=== PATIENT | female | born 1935 | race Asian ===

== ENCOUNTER 2018-08-19 08:31 | Emergency (ER) | payer BC, MEDICARE, OTHER ==
[~2018-08-19] VITALS: Ht 157.5 cm; Wt 48.5 kg
[~2018-08-19 08:31] MED LIST: CALC300T34 PO; CYAN100018 PO; FOLI0.4T2 PO; ZOC10 PO
[2018-08-19 08:39] VITALS: Ht 157.5 cm; Wt 48.5 kg
[2018-08-19] MEDS ORDERED: SOD CHLORIDE 0.9% 1,000 ML IV STA (08:51)
--- NOTE | 2018-08-19 09:10 | ERD ---
ER Documentation Chief Complaint Chief Complaint ringing on the right ear HPI 83-year-old female who states that she has had 1 month of a whooshing sound in her right ear that is consistent with the rate of her pulse. Patient denies any headache or vision changes, no weight loss. She denies any dizziness, room spinning sensation or syncope. No severe sudden onset of symptoms. She has not followed up with her nares and throat specialist for this timeframe. No recent fall or trauma. ROS All systems reviewed and are negative except as per history of present illness. Medications Home Meds Reported Medications Simvastatin* (Zocor*) 40 Mg Tablet, 40 MG PO QHS, #30 TAB 08/19/18 Discontinued Reported Medications Cyanocobalamin (B12 Health Booster) 1,000 Mcg/15 Ml Oral.susp, 1000 MCG PO DAILY 02/10/12 Folic Acid* (Folic Acid*) 0.4 Mg Tablet, 0.4 MG PO DAILY 02/10/12 Calcium Carbonate (Tums EX) 1 Tab.chew Tab.chew, 1.5 TAB.CHEW PO DAILY 02/10/12 Simvastatin (Simvastatin) 10 Mg Tablet, 10 MG PO DAILY 02/10/12 Allergies Allergies: Coded Allergies: iodine (Verified Allergy, Mild, 08/19/18) Uncoded Allergies: dye (Allergy, Mild, rash, 09/27/09) PMhx/Soc History of Surgery: Yes (hysterectomy, colon resection for CA , AORTIC VALVE REPLACEMENT ) Anesthesia Reaction: No Hx Neurological Disorder: No Hx Respiratory Disorders: No Hx Cardiac Disorders: Yes (HYPERLILIDEMIA ) Hx Psychiatric Problems: No Hx Miscellaneous Medical Probl: Yes ( colon CA) Hx Alcohol Use: No Hx Substance Use: No Hx Tobacco Use: No Smoking Status: Never smoker FmHx Family History: No diabetes Physical Exam Vitals Vital Signs Date Temp Pulse Resp B/P (MAP) Pulse Ox O2 O2 Flow FiO2 Time Delivery Rate 08/19/18 98.3 58 18 129/71 100 Room Air 11:35 (90) 08/19/18 61 18 148/81 99 Room Air 10:05 (103) 08/19/18 98.3 69 24 180/85 99 08:39 (116) Physical Exam General: Well developed, well nourished, no acute distress Head: Normocephalic, atraumatic. Eyes: Pupils equally reactive, EOM intact ENT: Moist mucous membranes, right ear canal is clear, tympanic membrane has old scarring but no erythema or bulging. Left TM is normal. Neck: Supple, no lymphadenopathy Respiratory: Lungs clear bilaterally, no distress Cardiovascular: RRR, no murmurs, rubs, or gallops Abdominal: Soft, non-tender, non-distended, no peritoneal signs : Deferred MSK: No edema, no unilateral swelling, 5/5 strength Neurologic: Alert and oriented, moving all extremities, normal speech, no focal weakness, no cerebellar signs, no ataxia Skin: No rash Psych: Normal mood Result Diagram: 08/19/1890108/19/18901 Results 24 hrs Laboratory Tests Test 08/19/18 09:02 White Blood Count 5.6 10^3/ul Red Blood Count 4.01 10^6/ul Hemoglobin 11.7 g/dl Hematocrit 37.5 % Mean Corpuscular Volume 93.5 fl Mean Corpuscular Hemoglobin 29.2 pg Mean Corpuscular Hemoglobin Concent 31.2 g/dl Red Cell Distribution Width 14.5 % Platelet Count 167 10^3/UL Mean Platelet Volume 9.6 fl Immature Granulocytes % 0.500 % Neutrophils % 62.0 % Lymphocytes % 27.3 % Monocytes % 7.7 % Eosinophils % 1.8 % Basophils % 0.7 % Nucleated Red Blood Cells % 0.0 /100WBC Immature Granulocytes # 0.030 10^3/ul Neutrophils # 3.5 10^3/ul Lymphocytes # 1.5 10^3/ul Monocytes # 0.4 10^3/ul Eosinophils # 0.1 10^3/ul Basophils # 0.0 10^3/ul Nucleated Red Blood Cells # 0.0 10^3/ul Sodium Level 147 mmol/L Potassium Level 4.6 mmol/L Chloride Level 108 mmol/L Carbon Dioxide Level 33 mmol/L Anion Gap 6 Blood Urea Nitrogen 15 mg/dl Creatinine 0.63 mg/dl Est Glomerular Filtrat Rate mL/min mL/min Glucose Level 104 mg/dl Calcium Level 9.3 mg/dl Current Medications Medications Dose Sig/Rosita Start Time Status Last (Trade) Ordered Route PRN Stop Time Admin Dose Reason Admin Sodium 1,000 ml @ Q1H STAT 08/19/18 DC 08/19/18 Chloride 1,000 mls/hr IV 08:51 09:06 08/19/18 09:50 Procedures/MDM EKG, MONITORS, & DIAGNOSTIC IMAGING: MRI/MRA PENDING LAB INTERPRETATION: I reviewed the laboratory testing and it shows no evidence of acute process MEDICAL DECISION MAKING: The patient describes a 1 month of a whooshing sound in her right ear. The patient is otherwise well-appearing without vertigo signs or symptoms despite what was noted in triage. The patient has a nonfocal neurologic exam. Unclear etiology, most likely consistent with ENT process rather than central nervous system process or vascular process. However more serious causes could include intracranial mass or aneurysm versus dissection. This seems less likely given the duration of symptoms however the patient has not had a work-up. Given her age and increased risk profile I believe CT and CTA of the head and neck would be appropriate. If negative outpatient ENT follow-up would be reasonable. ER COURSE: * The patient continues to be well-appearing and asymptomatic in the emergency room setting. The patient has an iodine contrast of CT. * We are attempting to get an MRI, MRA of the patient's head and neck. However, the patient has a valve. Based on documentation it appears this valve is appropriate for MRI however we need confirmation. * The nurse caring for the patient was able to reach out to the primary cardiothoracic surgeon's office. They have given verbal report that this valve is appropriate for MRI. windows migration technician needs further confirmation and are speaking with the office to confirm. If we are able to confirm patient is appropriate for MRI then MRI will continue. However I did have an in-depth conversation with the patient discussing the significantly low risk for aneurysmal process. We discussed potential outpatient follow-up given very low pretest probability. If we are unable to obtain MRI imaging and a timely fashion in the emergency room setting they feel very comfortable following up with primary care physician. Given 1 month of symptoms this seems like an appropriate alternative. CONSULTATION: None DISPOSITION PLAN: Pending MRI imaging, patient endorsed oncoming provider but anticipate discharge, see below The patient does not have an identifiable emergent medical condition that warrants inpatient hospitalization at this time. The patient is deemed safe for discharge with outpatient follow-up. We discussed follow up with the patient's primary care doctor within 24 to 48 hours as needed. We also discussed return to the emergency room for worsening symptoms or worsening condition. Outpatient referral: None required Discharge Medications: None required Departure Diagnosis: Primary Impression: Congestion of right ear Condition: Stable FARRAH MOLINA A., MD Aug 19, 2018 09:10
[2018-08-19] MEDS ORDERED: SIMV40TA2 PO (10:07)
--- NOTE | 2018-08-19 19:36 | QN ---
Documentation Comment Observation Note: Time: 4 hours Family Hx: Negative for diabetes Evaluation: Multiple exams showed improving symptoms and no evidence of clinical decompensation. MRI/MRA of the brain and neck showed no obvious signs of aneurysm formation to the explain the whooshing sound in the ear. Patient will be discharged and can follow-up per Dr. Brandie molina. EUNICE JEFFERY MD Aug 19, 2018 19:36
[2018-08-19] MEDS ORDERED: NPH10OT RIGHT EAR (19:39)
[2018-08-19 19:42] VITALS: BP 122/66; PULSE 73; RESP 20
== END 2018-08-19 21:04 | disposition home or self-care (01) ==
LOC: E/R 08:31
DX: H93.8X1 Other specified disorders of right ear (principal); R40.2142 Coma scale, eyes open, spontaneous, at arrival to emergency department; R40.2362 Coma scale, best motor response, obeys commands, at arrival to emergency department; R40.2252 Coma scale, best verbal response, oriented, at arrival to emergency department; Z85.038 Personal history of other malignant neoplasm of large intestine
CPT/HCPCS: 36415; 70544; 70549; 70551; 80048; 85025; 99284; J7030